=== PATIENT | male | born 1985 | race Caucasian/White ===

== ENCOUNTER 2021-01-11 16:38 | Emergency (ER) | payer OTHER ==
[~2021-01-11] VITALS: Ht 177.8 cm; Wt 54.4 kg
[2021-01-11 16:38] VITALS: BP 109/67
[~2021-01-11 16:38] MED LIST: DIVA250T PO
--- NOTE | 2021-01-11 16:40 | NUR ---
Patient assisted from [facility] kenroy onto bed.
--- NOTE | 2021-01-11 16:45 | NUR ---
35 [facility] states patient presents ALOC found in the streets admiting to ingesting "several beers." Upon assessment, patient presents A&Ox4 with garbled/slurred speech and states he drank "2 tall cans; one bud light, one OE." Patient admits to recent meth use 3 days ago, stating "a few lines." Patient states he was walking from [facility] and was "cite released from police for alcohol intoxication." Patient denies any medical complaint at this time. Denies chest pain, N/V/D, abdominal pain, head/neck/back pain, SOB, dizziness, headache, blurry vision, recent falls/trauma/injury. Patient presents unkept with dry feces on shirt and jeans. Patient placed onto patient monitor, bed locked in lowest position, side rails x 1, call light in reach. PMH: Bipolar d/o, schizophrenia Meds: Zyprexa, "another pill" NKA Addendum: 01/11/21 at 1659 by [facility] 35 y/o M BIBA [facility] with c/c alcohol intoxication. [facility] states patient presents ALOC found in the streets admiting to ingesting "several beers." Upon assessment, patient presents A&Ox3 with garbled/mumbled speech and states he drank "2 tall cans; one bud light, one OE." Patient admits to recent meth use 3 days ago, stating "a few lines." Patient states he was walking from [facility] and was "cite released from police for alcohol intoxication." Patient denies any medical complaint at this time. Denies chest pain, N/V/D, abdominal pain, head/neck/back pain, SOB, dizziness, headache, blurry vision, recent falls/trauma/injury. Patient presents unkept with dry feces on shirt and jeans. Patient placed onto patient monitor, bed locked in lowest position, side rails x 1, call light in reach. PMH: Bipolar d/o, schizophrenia Meds: Zyprexa, "another pill" NKA
--- NOTE | 2021-01-11 17:07 | NUR ---
Dr. Lau at pt bedside for further evalution.
--- NOTE | 2021-01-11 17:40 | NUR ---
X-ray at bedside
--- NOTE | 2021-01-11 17:59 | NUR ---
Patient resting in semi-fowlers position. [place] provided. Respirations even/unlabored. Bed locked in lowest position, side rails x 1, call light in reach.
--- NOTE | 2021-01-11 18:13 | NUR ---
Dinner meal tray provided at bedside. Patient sitting in chair completing meal at this time. +Apple/orange juice, trisha/saltine crackers, chocolate pudding, apple sauce and jello provided per request. All pt needs met at this time.
--- NOTE | 2021-01-11 18:46 | NUR ---
Patient completed dinner tray and snacks earlier. [place] sandwich, apple juice, trisha crackers and chocolate pudding provided per pt request.
--- NOTE | 2021-01-11 19:10 | NUR ---
Report and transfer of care given to DANO Monzon.
--- NOTE | 2021-01-11 19:20 | NUR ---
RECEIVED REPORT FROM TRE MATSON, FOR CONTINUITY OF CARE
[2021-01-11 19:30] VITALS: BP 126/76
--- NOTE | 2021-01-11 19:35 | NUR ---
Patient discharged with v/s stable. Written and verbal after care instructions given and explained. Patient verbalized understanding. Ambulatory with steady gait. All questions addressed prior to discharge. Advised to follow up with PMD.
== END 2021-01-11 19:30 | disposition home or self-care (01) ==
LOC: MED 16:38
DX: S60.222A Contusion of left hand, initial encounter (principal); F10.129 Alcohol abuse with intoxication, unspecified; F32.9 Major depressive disorder, single episode, unspecified; F20.9 Schizophrenia, unspecified; Z79.899 Other long term (current) drug therapy; W19.XXXA Unspecified fall, initial encounter; Y93.89 Activity, other specified; Y92.89 Other specified places as the place of occurrence of the external cause; Y99.8 Other external cause status
CPT/HCPCS: 73130; 99283